=== PATIENT | female | born 1985 | race Hispanic/Latino ===

== ENCOUNTER 2017-08-10 16:04 | Emergency (ER) | payer OTHER ==
--- NOTE | 2017-08-10 17:48 | ER ---
Nurse's Notes [facility] Name: Edith Rodriguez Age: 32 yrs Sex: Female : 1985 Arrival Date: 08/10/2017 Time: 16:08 Bed Waiting Private MD: Diagnosis: Presentation: 08/10 16:16 Presenting complaint: Patient states: since July 25, went to [facility] for hj abdominal pain and was told i had pancreatitis, they're supposed to do procedure but they wont because im , LMP- 06/24/17; reports abd pain and nausea;. Transition of care: patient was not received from another setting of care. Onset of symptoms was August 10, 2017. Care prior to arrival: None. 16:16 Method Of Arrival: Ambulatory 16:16 Acuity: WILLIAN 3 hj 17:36 Note pt was called 3x and no answer;. hj Triage Assessment: 16:19 General: Appears in no apparent distress. uncomfortable, Behavior is calm, cooperative, hj appropriate for age. Pain: Complains of pain in abdomen. GI: Reports upper abdominal pain, nausea. 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 Vital Signs: 16:19 BP 124 / 90; Pulse 110; Resp 18; Temp 98.1(TE); Pulse Ox 100% on R/A; Weight 60.78 kg; hj Height 5 ft. 1 in. (154.94 cm); Pain 10/10; 16:19 Body Mass Index 25.32 (60.78 kg, 154.94 cm) ED Course: 16:08 Patient arrived in ED. rg4 16:18 Triage completed. hj 16:19 Arm band placed on right wrist. hj 17:33 Ingris Tapia FNP-C is PHCP. snw 17:33 Myles Jimenez MD is Attending Physician. snw Administered Medications: No medications were administered Outcome: 17:47 Patient left the ED. hj Signatures: Ingris Tapia FNP-C MOBILE PRODUCT MANAGER-Csnw Mathew Sutton, RN RN Analy Padgett rg4 Corrections: (The following items were deleted from the chart) 16:21 16:19 Pulse 110bpm; Resp 18bpm; Pulse Ox 100% RA; Temp 98.1F Temporal; 60.78 kg; Height hj 5 ft. 1 in.; BMI: 25.3; Pain 10/10; hj
--- NOTE | 2017-08-10 17:48 | EDPHYS ---
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 1 in. (154.94 cm); Pain 10/10; 16:19 Body Mass Index 25.32 (60.78 kg, 154.94 cm) hj MDM: 17:36 ED course: pt left from ED lobby before evaluation per this provider. [facility] 08/10 17:34 Order name: Basic Metabolic Panel [facility] 08/10 17:34 Order name: CBC with Diff w 08/10 17:34 Order name: Hepatic Function [facility] 08/10 17:34 Order name: Lipase [facility] 08/10 17:34 Order name: Urine Microscopic Only [facility] 08/10 17:34 Order name: IV Saline Lock [facility] 08/10 17:34 Order name: Labs collected and sent [facility] 08/10 17:34 Order name: Urine Dipstick-Ancillary (obtain specimen) [facility] Administered Medications: No medications were administered Disposition: 08/10/17 17:47 Patient left the facility before being seen by provider. - Patient left due to unknown. Signatures: Dispatcher [employer] Ingris Oropeza, ADALI-C HEEL BUFFER-Csnw Mathew Sutton, RN RN
[2017-08-10 17:51] VITALS: BP 124/90; TEMP 98.1; O2SAT 100
== END 2017-08-10 17:47 | disposition left against medical advice (07) ==
LOC: ER 16:04
DX: Z53.21 Procedure and treatment not carried out due to patient leaving prior to being seen by health care provider (principal)
CPT/HCPCS: 99281

== ENCOUNTER 2018-01-12 19:00 | Emergency (ER) | payer OTHER, SELFPAY ==
--- NOTE | 2018-01-12 20:33 | ER ---
Nurse's Notes [facility] Name: Edith Rodriguez Age: 32 yrs Sex: Female : 1985 Arrival Date: 01/12/2018 Time: 19:21 Bed 8 Private MD: Diagnosis: Presentation: 01/12 19:25 Presenting complaint: Patient states: N/V generalized abdominal pain that started today aj just after patient had positive home test. Patient reports that the only other time she has had similar before was when she was . Transition of care: patient was not received from another setting of care. Onset of symptoms was January 12, 2018. Risk Assessment: Do you want to hurt yourself or someone else? Patient reports no desire to harm self or others. Initial Sepsis Screen: Does the patient meet any 2 criteria? No. Patient's initial sepsis screen is negative. Does the patient have a suspected source of infection? No. Patient's initial sepsis screen is negative. Note Patient drove herself and her minor child to the ER. Care prior to arrival: None. 19:25 Method Of Arrival: Ambulatory 19:25 Acuity: WILLIAN 3 aj Triage Assessment: 19:28 General: Appears in no apparent distress. uncomfortable, Behavior is calm, cooperative, aj appropriate for age. Pain: Complains of pain in abdomen. Neuro: Level of Consciousness is awake, alert, obeys commands, Oriented to person, place, time, situation, Appropriate for age. Respiratory: Airway is patent Respiratory effort is even, unlabored, Respiratory pattern is regular, symmetrical. GI: Reports lower abdominal pain, upper abdominal pain, nausea, vomiting. Derm: Skin is intact, is healthy with good turgor, Skin is pink, warm \T\ dry. normal. 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 - Social history:: Smoking status: Patient/guardian denies using tobacco. - Ebola Screening: : Patient negative for fever greater than or equal to 101.5 degrees Fahrenheit, and additional compatible Ebola Virus Disease symptoms Patient denies exposure to infectious person Patient denies travel to an Ebola-affected area in the 21 days before illness onset No symptoms or risks identified at this time. Screenin:44 Abuse screen: Denies threats or abuse. Denies injuries from another. Nutritional aa1 screening: No deficits noted. Tuberculosis screening: No symptoms or risk factors identified. Fall Risk None identified. Assessment: 19:44 General: Appears in no apparent distress. uncomfortable, Behavior is calm, cooperative, aa1 appropriate for age. Pain: Complains of pain in abdomen Pain began this morning Is continuous. Neuro: Level of Consciousness is awake, alert, obeys commands, Oriented to person, place, time, situation, Gait is steady. Respiratory: Airway is patent Respiratory effort is even, unlabored, Respiratory pattern is regular, symmetrical. GI: Abdomen is non-distended, Reports lower abdominal pain, upper abdominal pain, nausea, vomiting. : No signs and/or symptoms were reported regarding the genitourinary system. EENT: No signs and/or symptoms were reported regarding the EENT system. Derm: Skin is intact, is healthy with good turgor, Skin is pink, warm \T\ dry. Musculoskeletal: Circulation, motion, and sensation intact. Capillary refill < 3 seconds. 20:10 Reassessment: MD went to assess pt and found room to be empty. Will come back shortly aa1 to see if pt has returned. 20:27 Reassessment: Room still empty and pt believed to have eloped. aa1 Vital Signs: 19:28 BP 137 / 93; Pulse 103; Resp 20; Temp 97.2; Pulse Ox 99% on R/A; Weight 56.7 kg; Height aj 5 ft. 1 in. (154.94 cm); 19:28 Body Mass Index 23.62 (56.70 kg, 154.94 cm) aj ED Course: 19:21 Patient arrived in ED. aj 19:27 Triage completed. aj 19:28 Arm band placed on left wrist. Patient placed in an exam room. aj 19:35 Michael Keith MD is Attending Physician. ps1 19:43 Evonne Rutherford, BELL is Primary Nurse. aa1 19:44 Patient has correct armband on for positive identification. Bed in low position. Call aa1 light in reach. Pulse ox on. NIBP on. Warm blanket given. 19:44 Urine collected: clean catch specimen, kris colored. aa1 20:27 No provider procedures requiring assistance completed. Patient did not have IV access aa1 during this emergency room visit. Administered Medications: No medications were administered Outcome: 20:27 Eloped from patient exam room, before seeing physician Time discovered patient gone: aa1 January 12, 2018 at 20:27 20:32 Patient left the ED. aa1 Signatures: Evonne Rutherford RN RN aa1 Greta Valadez RN RN aj Michael Keith MD MD ps1
[2018-01-12 20:37] VITALS: BP 137/93; TEMP 97.2; O2SAT 99
[2018-01-12 20:38] LABS: Urine Blood 2+ (NEG); Urine Glucose NEGATIVE (NEG); Urine Protein 2+ (NEG); Urine Specific Gravity >1.030 (1.005-1.030); Urine pH 5.5 (5.0-7.0)
== END 2018-01-12 20:32 | disposition left against medical advice (07) ==
LOC: ER 19:00
DX: Z53.21 Procedure and treatment not carried out due to patient leaving prior to being seen by health care provider (principal)
CPT/HCPCS: 81003; 81025; 99283

== ENCOUNTER 2018-01-22 08:32 | Emergency (ER) | payer OTHER, SELFPAY ==
[2018-01-22] MEDS ORDERED: NA CHLORIDE 0.9% 100 ML IV ONE (08:51)
[2018-01-22] MEDS ORDERED: PROMETHAZINE 25 MG/ML VIAL ONE ×2 (08:51→11:12)
[2018-01-22] MEDS ORDERED: NA CHLORIDE 0.9% 1,000 ML ONE (08:51)
[2018-01-22 09:17] LABS: Absolute Lymphocytes (CBC) 1.2 K/uL (0.7-4.9); Absolute Monocytes 0.3 K/uL (0.1-1.3); Absolute Neutrophil 5.6 K/uL (1.8-8.0); Basophils % 0.3 % (0-1.3); Eosinophils % 0.1 % (0-4.4); Hematocrit 34.8 % (36.0-45.0); Lymphocytes % 17.2 % (15.3-44.8); MCV 74.3 fL (80-100); Monocytes % 3.6 % (3.3-12.3); RBC Red Blood Cell Count 4.68 M/uL (3.86-4.86)
[2018-01-22 09:48] LABS: ALT/SGPT 23 U/L (12-78); AST/SGOT 11 U/L (15-37); Albumin 4.3 g/dL (3.4-5.0); Alkaline Phosphatase 58 U/L (45-117); Amylase Level 87 U/L (25-115); BUN Blood Urea Nitrogen 13 mg/dL (7-18); Bicarbonate 25 mmol/L (21-32); Bilirubin Direct 0.2 mg/dL (0-0.2); Bilirubin Total 1.3 mg/dL (0.2-1.0); Glucose Level 108 mg/dL (74-106); HCG, Quantitative 3226 mIU/mL (1-3); Lipase 506 U/L (73-393); Potassium 3.1 mmol/L (3.5-5.1); Protein, Total 7.8 g/dL (6.4-8.2); Sodium Level 136 mmol/L (136-145)
[2018-01-22 10:17] LABS: Urine Blood 2+ (NEG); Urine Glucose NEGATIVE (NEG); Urine Protein NEGATIVE (NEG); Urine Specific Gravity 1.025 (1.005-1.030)
[2018-01-22 10:26] LABS: Urine Bacteria 20-50 /HPF (<20); Urine RBC <5 /HPF (NONE SEEN)
[2018-01-22 10:27] LABS: Urine Amorphous Sediment 3+ /HPF (NONE SEEN); Urine Culture Reflex Order REFLEXED
[2018-01-22] MEDS ORDERED: POTASSIUM CL SA 10 MEQ TAB PO ONE (10:38)
--- NOTE | 2018-01-22 10:41 | RAD REPORT ---
EXAM DESCRIPTION: US - Abdomen Exam Limited - 01/22/2018 10:28 am CLINICAL HISTORY: ABD PAIN<Reason For Exam>ABD PAIN COMPARISON: ABDOMINAL EXAM LIMITED dated 05/30/2013<Comparisons>ABDOMINAL EXAM LIMITED dated 05/30/2013 None. FINDINGS: Small amount of sludge is present but no gallstones seen. There is no wall thickening or p ericholecystic fluid. No common duct stone or biliary tree dilatation identified. IMPRESSION: Gallbladder sludge with no other significant gallbladder or biliary tree finding.
[2018-01-22] MEDS ORDERED: ACETAMINOPHEN 500 MG TAB ONE (10:44)
--- NOTE | 2018-01-22 10:45 | RAD REPORT ---
EXAM DESCRIPTION: US - 1St Trimest Single 1St Fetus - 01/22/2018 10:29 am CLINICAL HISTORY: ABD CRAMPING, <Reason For Exam>ABD CRAMPING, COMPARISON: No comparisons<Comparisons>No comparisons TECHNIQUE: Transabdominal sonography performed. Patient declined endovaginal exam. FINDINGS: Right ovary was not identifiable. No right adnexal mass. No left ovary abnormality. No flu id or blood in the cul-de-sac. Uterus is 9.1 x 6.0 x 7.2 cm. Within the endometrial cavity there is a 3.3 x 2.0 x 1.0 centimeter hyp oechoic collection. There is an additional discrete oval 8 mm fluid collection that may be an early g estational sac. No yolk sac or pole identifiable. Size is below 6 weeks. In the setting of a po sitive study this may be a very early gestational sac. The fluid could be entrapped within the uterus or represents a subacute or possibly old subchorionic hemorrhage. The larger collection is more hypoechoic than typically seen for acute subchorionic hemorrhage. IMPRESSION: A small 8 mm fluid collection in the endometrial cavity is present with an adjacent 3 x 2 x 1 centimeter hypoechoic collection. The smaller oval fluid collection could be a very early gestational sac with the larger collection is subacute to old subchorionic hemorrhage. Right ovary was not visualized. No adnexal abnormalities. Correlation is needed with beta HCG values. Repeat imaging could be performed if there is finding of ongoing .
--- NOTE | 2018-01-22 11:04 | EDPHYS ---
Physician Documentation [facility] Name: Edith Rodriguez Age: 32 yrs Sex: Female : 1985 Arrival Date: 01/22/2018 Time: 08:35 Bed 5 Private MD: None, None ED Physician Bandar Martino HPI: 01/22 09:53 This 32 yrs old Female presents to ER via Ambulatory with complaints of kb Abdominal Pain, Vomiting. 09:53 The patient presents with abdominal pain in the upper abdomen. Onset: The kb symptoms/episode began/occurred 2 week(s) ago. The symptoms do not radiate. Associated signs and symptoms: Pertinent positives: nausea and vomiting, anorexia, Pertinent negatives: blood in stools, chest pain, constipation, diarrhea, dysuria, fever, headache, hematuria, palpitations, shortness of breath, vaginal discharge, vomiting blood. The symptoms are described as constant. Modifying factors: The symptoms are alleviated by nothing, the symptoms are aggravated by pressure. Severity of pain: At its worst the pain was mild moderate in the emergency department the pain is unchanged. The patient has experienced similar episodes in the past. The patient has not recently seen a physician. 09:55 Pt c/o nausea, vomiting and abd pain that began after taking a positive test kb 2 weeks ago. States the pain has been constant and she hasn't been able to keep anything down for the 2 weeks. Report she has been urinating. Has not made appt with OB because "I can't do anything.". 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 - Social history:: Smoking status: Patient/guardian denies using tobacco. - Ebola Screening: : Patient negative for fever greater than or equal to 101.5 degrees Fahrenheit, and additional compatible Ebola Virus Disease symptoms Patient denies exposure to infectious person Patient denies travel to an Ebola-affected area in the 21 days before illness onset No symptoms or risks identified at this time. ROS: 09:52 Constitutional: Negative for fever, chills, and weight loss, Cardiovascular: Negative kb for chest pain, palpitations, and edema, Respiratory: Negative for shortness of breath, cough, wheezing, and pleuritic chest pain, Back: Negative for injury and pain, : Negative for injury, bleeding, discharge, and swelling, MS/Extremity: Negative for injury and deformity, Skin: Negative for injury, rash, and discoloration, Neuro: Negative for headache, weakness, numbness, tingling, and seizure. 09:52 Abdomen/GI: Positive for abdominal pain, nausea and vomiting, Negative for diarrhea, constipation, abdominal cramps, abdominal distension, anorexia. Exam: 09:52 Constitutional: This is a well developed, well nourished patient who is awake, alert, kb and in no acute distress. Head/Face: Normocephalic, atraumatic. Chest/axilla: Normal chest wall appearance and motion. Nontender with no deformity. No lesions are appreciated. Cardiovascular: Regular rate and rhythm with a normal S1 and S2. No gallops, murmurs, or rubs. Normal PMI, no JVD. No pulse deficits. Respiratory: Lungs have equal breath sounds bilaterally, clear to auscultation and percussion. No rales, rhonchi or wheezes noted. No increased work of breathing, no retractions or nasal flaring. Back: No spinal tenderness. No costovertebral tenderness. Full range of motion. Skin: Warm, dry with normal turgor. Normal color with no rashes, no lesions, and no evidence of cellulitis. MS/ Extremity: Pulses equal, no cyanosis. Neurovascular intact. Full, normal range of motion. Neuro: Awake and alert, GCS 15, oriented to person, place, time, and situation. Cranial nerves II-XII grossly intact. Motor strength 5/5 in all extremities. Sensory grossly intact. Cerebellar exam normal. Normal gait. 09:52 Abdomen/GI: Inspection: abdomen appears normal, Bowel sounds: normal, in all quadrants, Palpation: soft, in all quadrants, mild abdominal tenderness, in the epigastric area. Vital Signs: 08:47 BP 117 / 88; Pulse 74; Resp 15; Temp 97.6; Pulse Ox 99% on R/A; Weight 52.16 kg; Height aj 5 ft. 1 in. (154.94 cm); 09:13 BP 133 / 73; Pulse 77; Resp 16; Pulse Ox 100% on R/A; dh3 10:11 BP 134 / 91; Pulse 78; Resp 16; Pulse Ox 100% on R/A; dh3 11:18 BP 134 / 87; Pulse 75; Resp 16; Pulse Ox 100% ; jl7 08:47 Body Mass Index 21.73 (52.16 kg, 154.94 cm) aj MDM: 08:40 Patient medically screened. kb 09:52 Data reviewed: vital signs, nurses notes. Data interpreted: Pulse oximetry: on room air kb is 100 %. Interpretation: normal. 11:03 Counseling: I had a detailed discussion with the patient and/or guardian regarding: the kb historical points, exam findings, and any diagnostic results supporting the discharge/admit diagnosis, lab results, radiology results, the need for outpatient follow up, an OB/Gyne specialist, to return to the emergency department if symptoms worsen or persist or if there are any questions or concerns that arise at home. 01/22 08:45 Order name: Quantitative Hcg kb 01/22 08:45 Order name: Abo/rh Typing kb 01/22 08:45 Order name: Basic Metabolic Panel kb 01/22 08:45 Order name: CBC with Diff kb 01/22 08:45 Order name: Amylase, Serum kb 01/22 08:45 Order name: Hepatic Function; Complete Time: 09:49 kb 01/22 08:45 Order name: Lipase; Complete Time: 09:49 kb 01/22 08:45 Order name: HCG, Quantitative; Complete Time: 09:49 EDMS 01/22 08:45 Order name: ABO/RH typing; Complete Time: 10:12 EDMS 01/22 08:45 Order name: Basic Metabolic Panel; Complete Time: 09:49 EDMS 01/22 08:45 Order name: CBC with Automated Diff; Complete Time: 09:27 EDMS 01/22 08:45 Order name: Amylase Level; Complete Time: 09:49 EDMS 01/22 09:00 Order name: Urine Microscopic Only; Complete Time: 10:31 dh3 01/22 09:05 Order name: Urine Dipstick--Ancillary (enter results); Complete Time: 10:26 bd 01/22 08:45 Order name: Urine Test (obtain specimen); Complete Time: 08:55 kb 01/22 08:45 Order name: IV Saline Lock; Complete Time: 08:55 kb 01/22 08:45 Order name: Labs collected and sent; Complete Time: 08:55 kb 01/22 08:45 Order name: NPO; Complete Time: 08:55 kb 01/22 08:45 Order name: Urine Dipstick-Ancillary (obtain specimen); Complete Time: 08:55 kb 01/22 09:05 Order name: Urine --Ancillary (enter results); Complete Time: 10:26 bd 01/22 09:50 Order name: US Abdomen Limited; Complete Time: 10:41 kb 01/22 10:29 Order name: Urine Culture EDMS 01/22 10:29 Order name: 1St Trimest Single 1St Fetus; Complete Time: 10:52 EDMS 01/22 10:31 Order name: ABO/RH no charge; Complete Time: 10:32 EDMS Administered Medications: 08:57 Drug: NS 0.9% 1000 ml Route: IV; Rate: 1000 ml; Site: right antecubital; jl7 10:00 Follow up: IV Status: Completed infusion jl7 08:58 Drug: Phenergan 12.5 mg Route: IVP; Site: left antecubital; jl7 09:30 Follow up: Response: No adverse reaction; Nausea is decreased jl7 10:42 Drug: Potassium Chloride 40 mEq Route: PO; jl7 11:16 Follow up: Response: No adverse reaction jl7 10:42 Drug: Tylenol 1000 mg Route: PO; jl7 11:17 Follow up: Response: No adverse reaction jl7 11:07 Drug: Phenergan 12.5 mg Route: IVP; Site: right antecubital; jl7 11:17 Follow up: Response: Medication administered at discharge. jl7 Disposition: 15:31 Co-signature as Attending Physician, Bandar Martino MD. rn Disposition: 01/22/18 11:03 Discharged to Home. Impression: Less than 8 weeks gestation of , Nausea and vomiting, Upper abdominal pain, unspecified. - Condition is Stable. - Discharge Instructions: First Trimester of , [id number], Nausea and Vomiting, Adult, [id number]. - Prescriptions for Diclegis 10- 10 mg Oral tablet,delayed release (DR/EC) - take 1 tablet by ORAL route once daily; 20 tablet. - Medication Reconciliation Form, Thank You Letter, Antibiotic Education, Prescription Opioid Use form. - Follow up: Emergency Department; When: As needed; Reason: Worsening of condition. Follow up: Private Physician; When: 2 - 3 days; Reason: Recheck today's complaints, Continuance of care, Re-evaluation by your physician. Signatures: Dispatcher [employer] [facility] Meka Renteria, ADALI-C MARKETING SYSTEMS ANALYST-Greta Kennedy, RN RN Bandar Zelaya MD MD rn Leal, Jahala, RN RN jl7 Corrections: (The following items were deleted from the chart) 10:29 09:51 Transvaginal Ob+US.RAD.BRZ ordered. [facility] 11:19 11:03 01/22/2018 11:03 Discharged to Home. Impression: Less than 8 weeks gestation of jl7 ; Nausea and vomiting; Upper abdominal pain, unspecified. Condition is Stable. Forms are Medication Reconciliation Form, Thank You Letter, Antibiotic Education, Prescription Opioid Use. Follow up: Emergency Department; When: As needed; Reason: Worsening of condition. Follow up: Private Physician; When: 2 - 3 days; Reason: Recheck today's complaints, Continuance of care, Re-evaluation by your physician. kb
--- NOTE | 2018-01-22 11:04 | ER ---
Nurse's Notes [facility] Name: Edith Rodriguez Age: 32 yrs Sex: Female : 1985 Arrival Date: 01/22/2018 Time: 08:35 Bed 5 Private MD: None, None Diagnosis: Less than 8 weeks gestation of ;Nausea and vomiting;Upper abdominal pain, unspecified Presentation: 01/22 08:45 Presenting complaint: Patient states: N/V and mid abdominal pain that started 2 weeks aj ago after having positive UPT. Patient reports she is still urinating. Transition of care: patient was not received from another setting of care. Onset of symptoms was January 11, 2018. Risk Assessment: Do you want to hurt yourself or someone else? Patient reports no desire to harm self or others. Initial Sepsis Screen: Does the patient meet any 2 criteria? No. Patient's initial sepsis screen is negative. Does the patient have a suspected source of infection? No. Patient's initial sepsis screen is negative. Care prior to arrival: None. 08:45 Method Of Arrival: Ambulatory aj 08:45 Acuity: WILLIAN 3 aj Triage Assessment: 08:47 General: Appears in no apparent distress. comfortable, Behavior is calm, cooperative, aj appropriate for age. Pain: Complains of pain in umbilical area. Neuro: Level of Consciousness is awake, alert, obeys commands, Oriented to person, place, time, situation, Appropriate for age. Respiratory: Airway is patent Respiratory effort is even, unlabored, Respiratory pattern is regular, symmetrical. GI: Abdomen is flat, non-distended, Reports nausea, vomiting. Derm: Skin is intact, is healthy with good turgor, Skin is pink, warm \\T\\ dry. normal. AREA COORDINATOR: 08:47 LMP 12/10/2017 aj 08:47 7, Full Term 5, Premature 0, 1, Living 5 aj 09:58 7, 1, Living 5, LMP 12/10/2017 kb Historical: - Allergies: 08:47 No Known Allergies; aj - Home Meds: 08:47 None [Active]; aj - PMHx: 08:47 Ovarian cyst; Pancreatitis; aj - PSHx: 08:47 None; aj - Immunization history:: Adult Immunizations up to date. - Social history:: Smoking status: Patient/guardian denies using tobacco. - Ebola Screening: : Patient negative for fever greater than or equal to 101.5 degrees Fahrenheit, and additional compatible Ebola Virus Disease symptoms Patient denies exposure to infectious person Patient denies travel to an Ebola-affected area in the 21 days before illness onset No symptoms or risks identified at this time. Screenin:02 Abuse screen: Denies threats or abuse. Denies injuries from another. Nutritional jl7 screening: No deficits noted. Tuberculosis screening: No symptoms or risk factors identified. Fall Risk IV access (20 points). Total Kirby Fall Scale indicates No Risk (0-24 pts). Assessment: 08:45 General: Appears uncomfortable, Behavior is cooperative, anxious. Pain: Complains of jl7 pain in umbilical area Pain does not radiate. Pain currently is 8 out of 10 on a pain scale. Quality of pain is described as squeezing, Pain began 2-3 weeks ago Is continuous. Neuro: Level of Consciousness is awake, alert, obeys commands, Oriented to person, place, time, situation. Cardiovascular: Patient's skin is warm and dry. Respiratory: Airway is patent Respiratory effort is even, unlabored, Respiratory pattern is regular, symmetrical. GI: Bowel sounds present X 4 quads. Abd is soft and non tender X 4 quads. Abdomen is tender to palpation in umbilical area Reports diarrhea, nausea, vomiting. : Urine is cloudy, Denies burning with urination, inability to void, urinary frequency. EENT: No signs and/or symptoms were reported regarding the EENT system. Derm: Skin is pink, warm \\T\\ dry. Musculoskeletal: No signs and/or symptoms reported regarding the musculoskeletal system. 10:14 Reassessment: sent patient to restroom to empty bladder per ultrasound. Patient states, ss "if I have to have an ultrasound through my vagina, then I don't want it." ROBBIE Ackerman notified that patient is refusing test. Again explained to patient that the best way to view the fetus is by transvaginal ultrasound. Pt is still refusing test at this time. Vital Signs: 08:47 BP 117 / 88; Pulse 74; Resp 15; Temp 97.6; Pulse Ox 99% on R/A; Weight 52.16 kg; Height aj 5 ft. 1 in. (154.94 cm); 09:13 BP 133 / 73; Pulse 77; Resp 16; Pulse Ox 100% on R/A; dh3 10:11 BP 134 / 91; Pulse 78; Resp 16; Pulse Ox 100% on R/A; dh3 11:18 BP 134 / 87; Pulse 75; Resp 16; Pulse Ox 100% ; jl7 08:47 Body Mass Index 21.73 (52.16 kg, 154.94 cm) ED Course: 08:35 Patient arrived in ED. sb2 08:36 None, None is Private Physician. sb2 08:38 Meka Renterai FNP-C is PHCP. kb 08:38 Bandar Martino MD is Attending Physician. kb 08:46 Triage completed. aj 08:47 Arm band placed on left wrist. Patient placed in an exam room. aj 08:50 Initial lab(s) drawn, by me, sent to lab. Inserted saline lock: 20 gauge in right 3 antecubital area, using aseptic technique. Blood collected. 08:55 Urine collected: clean catch specimen, cloudy. 3 08:59 Alie Tong RN is Primary Nurse. jl7 09:02 Patient has correct armband on for positive identification. Bed in low position. Call jl7 light in reach. Side rails up X 1. Pulse ox on. NIBP on. 10:10 Patient taken to ultrasound. via wheelchair. aa4 10:29 US Abdomen Limited In Process Unspecified. EDMS 10:29 1St Trimest Single 1St Fetus In Process Unspecified. EDMS 10:33 Ultrasound completed. Patient moved back from ultrasound. aa4 11:18 No provider procedures requiring assistance completed. IV discontinued, intact, jl7 bleeding controlled, No redness/swelling at site. Pressure dressing applied. Administered Medications: 08:57 Drug: NS 0.9% 1000 ml Route: IV; Rate: 1000 ml; Site: right antecubital; jl7 10:00 Follow up: IV Status: Completed infusion jl7 08:58 Drug: Phenergan 12.5 mg Route: IVP; Site: left antecubital; jl7 09:30 Follow up: Response: No adverse reaction; Nausea is decreased jl7 10:42 Drug: Potassium Chloride 40 mEq Route: PO; jl7 11:16 Follow up: Response: No adverse reaction jl7 10:42 Drug: Tylenol 1000 mg Route: PO; jl7 11:17 Follow up: Response: No adverse reaction 11:07 Drug: Phenergan 12.5 mg Route: IVP; Site: right antecubital; 11:17 Follow up: Response: Medication administered at discharge. jl7 Outcome: 11:03 Discharge ordered by . kb 11:18 Discharged to home ambulatory. 7 11:18 Condition: stable 11:18 Discharge instructions given to patient, Instructed on discharge instructions, follow up and referral plans. medication usage, Demonstrated understanding of instructions, follow-up care, medications, Prescriptions given X 1. 11:19 Patient left the ED. jl7 Signatures: Dispatcher [employer] EDMS Meka Renteria, TALK SHOW HOST-C TALK SHOW HOST-Greta Kennedy, RN RN Greta Mckeon aa4 Karolina Tolentino RN RN ss Leal, Jahala, RN RN jl7 Lexi Soriano 3 Felisha Major 2
[2018-01-22 11:32] VITALS: O2SAT 100
[2018-01-22 11:33] VITALS: TEMP 97.6
[2018-01-22 11:35] VITALS: BP 134/87
== END 2018-01-22 11:19 | disposition home or self-care (01) ==
LOC: ER 08:32
DX: Z32.01 Encounter for pregnancy test, result positive (principal); R11.2 Nausea with vomiting, unspecified; R10.10 Upper abdominal pain, unspecified
CPT/HCPCS: 36415; 76705; 76801; 80048; 80076; 81003; 81015; 81025; 82150; 83690; 84702; 85025; 86900; 86901; 87086; 87088; 99284; J2550; J7030